=== PATIENT | female | born 1995 | race African-American/Black ===

== ENCOUNTER 2017-05-03 17:34 | Emergency (ER) | payer MEDICAID ==
[~2017-05-03] VITALS: Ht 165.1 cm; Wt 50.0 kg
[2017-05-03 17:36] VITALS: BP 123/85; PULSE 68; RESP 20; TEMP 98.6; O2SAT 99
[2017-05-03 19:40] VITALS: TEMP 98.4
--- NOTE | 2017-05-03 19:45 | PD ---
HPI Chief Complaint: Cold / Flu Symptoms Time Seen by Provider: 19:44 Travel History International Travel<30 days: No Contact w/Intl Traveler<30days: No Traveled to known affect area: No History of Present Illness HPI Patient comes in complaining of cold and flulike symptoms ongoing for 2 days. Patient reports cough that is occasionally productive, sinus congestion, body aches, and headaches. Patient took ibuprofen with minimal relief of her symptoms. Denies taking anything else for this. Denies anything making it worse. Denies any known sick contacts. Denies any nausea, vomiting, chest pain , shortness of breath, abdominal pain, loss or change in bowel or bladder, numbness or tingling anywhere, or . PFSH Past Medical History Medical History: Denies Significant Hx Diminished Hearing: No ?: Not LMP: 05/03/17 Past Surgical History Surgical History: No Previous Surgery Social History Alcohol Use: No Tobacco Use: No (never) Substance Use: No Allergies-Medications (Allergen,Severity, Reaction): Coded Allergies: No Known Allergies (Unverified , 05/03/17) Reported Meds & Prescriptions Reported Meds & Active Scripts Active No Active Prescriptions or Reported Medications Review of Systems Except as stated in HPI: all other systems reviewed are Neg Physical Exam Narrative GENERAL: Well-developed, well nourished, in no acute distress, and non-ill appearing. SKIN: Focused skin assessment warm and dry. HEAD: Atraumatic. Normocephalic. EYES: Pupils equal and round. EOMI. No scleral icterus. No injection or drainage. ENT: No nasal bleeding or discharge. Mucous membranes pink and moist. Tympanic membranes pearly hunt bilaterally. Posterior pharynx nonerythematous without exudate. Uvula is midline. Bogginess noted bilateral nares. No tenderness to facial sinuses to palpation. NECK: Trachea midline. No cervical lymphadenopathy. Supple. No nuclear rigidity. CARDIOVASCULAR: Regular rate and rhythm. No murmur appreciated. RESPIRATORY: No accessory muscle use. No respiratory distress. Clear to auscultation. Breath sounds equal bilaterally. No coughing on exam. GASTROINTESTINAL: Abdomen soft, non-tender, nondistended. Hepatic and splenic margins not palpable. Normal bowel sounds 4. No pulsatile mass. MUSCULOSKELETAL: No obvious deformities. No clubbing. No cyanosis. No edema. Full range of motion. NEUROLOGICAL: Awake and alert. No obvious cranial nerve deficits. Motor grossly within normal limits. Normal speech. PSYCHIATRIC: Appropriate mood and affect; insight and judgment normal. Data Data Last Documented VS Vital Signs Date Time Temp Pulse Resp B/P Pulse Ox O2 Delivery O2 Flow Rate FiO2 05/03/17 19:40 98.4 05/03/17 17:36 68 20 123/85 99 Room Air Orders Influenzae A/B Antigen (05/03/17 19:43) Group A Rapid Strep Screen (05/03/17 19:43) Chest, Single Ap (05/03/17 ) Strep Culture (Group A) (05/03/17 19:49) MDM Medical Decision Making Medical Screen Exam Complete: Yes Emergency Medical Condition: Yes Interpretation(s) Chest x-ray read by the radiologist shows: No acute cardiopulmonary disease. Differential Diagnosis Influenza, strep, pneumonia, URI, viral syndrome, other Narrative Course Patients symptom complex of cough and congestion is consistent with viral URI. The patient is non-ill appearing and is in no respiratory distress and comfortable. The patient moves air well and oxygen saturations are normal. There is no clinical evidence to suggest pneumonia at this time. Plan of care and management were discussed with the patient who agreed with plan. The patient was instructed to follow up with their physician and instructed to return if worsens, progressively worsening shortness of breath or difficulty breathing, persistent fever, chest pains or discomfort, inability to keep medication or fluids down with or without vomiting, or as needed. Patient in no obvious distress upon re-evaluation. All pertinent laboratory/ Radiology result(s) discussed with patient. Patient was asked if they wanted to speak to my attending, which the patient did not wish to do at this time. Any questions/concerns in reference to patient diagnosis/condition discussed and clarified prior to patient's discharge. Reinforced sheer importance of close follow up with patient's primary physician or primary care clinic. Instructed patient to return to ED immediately, if symptoms return/worsen. Pt showed understanding of above instructions. Further instructions and recommendations were detailed in discharge paperwork. Pt ambulated without difficulty out of ED at discharge. Diagnosis Primary Impression: Upper respiratory infection, viral Patient Instructions: General Instructions, Upper Respiratory Infection (ED) Additional Instructions: Follow-up with your primary care physician in 3-5 days for reevaluation. Use [id number] cold and flu medication for symptomatic relief. Follow instructions on the packaging. Drink plenty of non-caffeinated and nonalcoholic fluids. Return to the emergency department if symptoms get worse. Scripts No Active Prescriptions or Reported Meds Disposition: 01 DISCHARGE HOME Condition: Stable Waldo Kay May 03, 2017 19:45
--- NOTE | 2017-05-03 20:25 | RADRPT ---
EXAM DATE/TIME: 05/03/2017 19:56 [facility] COMPARISON: No previous studies available for comparison. INDICATIONS : Body pains and bloody mucus. MEDICAL HISTORY : None. SURGICAL HISTORY : None. ENCOUNTER: Initial ACUITY: 3 days PAIN SCORE: 4/10 LOCATION: Bilateral chest FINDINGS: The lungs are clear without infiltrate, nodule, or mass. There is no appreciable pleural effusion fo r technique. Heart and mediastinum are unremarkable. CONCLUSION: No acute cardiopulmonary disease. Shanel Yost MD on May 03, 2017 at 20:23 Board Certified Radiologist. This report was verified electronically.
== END 2017-05-03 21:01 | disposition home or self-care (01) ==
LOC: NEPD 17:34
DX: J06.9 Acute upper respiratory infection, unspecified (principal)
CPT/HCPCS: 71010; 87081; 87804; 87880; 99284

== ENCOUNTER 2017-07-12 18:35 | Emergency (ER) | payer MEDICAID ==
[~2017-07-12] VITALS: Ht 165.1 cm; Wt 50.0 kg
[2017-07-12 18:37] VITALS: BP 120/70; PULSE 70; RESP 20; TEMP 98.5; O2SAT 98
--- NOTE | 2017-07-12 19:56 | RADRPT ---
EXAM DATE/TIME: 07/12/2017 19:28 [facility] COMPARISON: No previous studies available for comparison. INDICATIONS : Constipation. MEDICAL HISTORY : None. SURGICAL HISTORY : None. ENCOUNTER: Initial ACUITY: 1 month PAIN SCORE: 0/10 LOCATION: Bilateral entire abdomen FINDINGS: Supine and upright views of the abdomen were performed. There is a moderate amount of stool in colon. No air fluid levels are seen. No abnormal masses, calcifications, or organomegaly is seen. The vis ualized lower lungs are clear. No evidence of free intraperitoneal gas. The osseous structures are unremarkable. CONCLUSION: Moderate amount of stool in the colon. Omid Astudillo MD on July 12, 2017 at 19:54 Board Certified Radiologist. This report was verified electronically.
[2017-07-12] MEDS ORDERED: MIRA3350 PO (20:33)
[2017-07-12] MEDS ORDERED: MILKSUS PO (20:33)
--- NOTE | 2017-07-12 20:42 | PD ---
HPI Chief Complaint: GI Complaint Time Seen by Provider: 19:07 Travel History International Travel<30 days: No Contact w/Intl Traveler<30days: No Traveled to known affect area: No History of Present Illness HPI 21-year-old female that presents to the ED for evaluation of constipation and abdominal cramping on occasion. Per patient she's had this for about 3 weeks. Per patient she does have a history of constipation but hasn't had any recently until this past 3 weeks. Per patient she has only had one really good bowel movement in the past 3 weeks. Per patient she feels like she is full. She states that she has a sensation that she has to go and she has abdominal cramping but nothing comes out. She is passing gas. She denies any urinary issues. She states that she does not believe that she is . She denies any vaginal discharge. No chest pain or shortness of breath. No nausea or vomiting. No allergies to medication. PFSH Past Medical History Medical History: Denies Significant Hx Diminished Hearing: No Tetanus Vaccination: < 5 Years Influenza Vaccination: Yes ?: Not LMP: 06/23/17 Past Surgical History Surgical History: No Previous Surgery Social History Alcohol Use: Yes Tobacco Use: No Substance Use: No Allergies-Medications (Allergen,Severity, Reaction): Coded Allergies: No Known Allergies (Unverified , 07/12/17) Reported Meds & Prescriptions Reported Meds & Active Scripts Active Milk of Magnesia Liq (Magnesium Hydroxide) 400 Mg/5 Ml Susp 15 Ml PO DAILY PRN Miralax Powder (Polyethylene Glycol 3350 Powder) 17 Gm Powd 17 Gm PO DAILY Mix and dissolve one measuring cap-ful (17 grams) in water or juice. Review of Systems Except as stated in HPI: all other systems reviewed are Neg Physical Exam Narrative GENERAL: SKIN: Warm and dry. HEAD: Atraumatic. Normocephalic. EYES: Pupils equal and round. No scleral icterus. No injection or drainage. ENT: No nasal bleeding or discharge. Mucous membranes pink and moist. Tongue is midline. No uvula deviation. NECK: Trachea midline. No JVD. CARDIOVASCULAR: Regular rate and rhythm. RESPIRATORY: No accessory muscle use. Clear to auscultation. Breath sounds equal bilaterally. GASTROINTESTINAL: Abdomen soft, non-tender, nondistended. Hepatic and splenic margins not palpable. MUSCULOSKELETAL: Extremities without clubbing, cyanosis, or edema. No obvious deformities. Full range of motion of the upper and lower extremities bilaterally. 2+ pulses bilaterally. NEUROLOGICAL: Awake and alert. No obvious cranial nerve deficits. Motor grossly within normal limits. Five out of 5 muscle strength in the arms and legs. Normal speech. PSYCHIATRIC: Appropriate mood and affect; insight and judgment normal. Data Data Last Documented VS Vital Signs Date Time Temp Pulse Resp B/P (MAP) Pulse Ox O2 Delivery O2 Flow Rate FiO2 07/12/17 18:37 98.5 70 20 120/70 (87) 98 Room Air Orders Orders Abdomen, Flat & Upright (07/12/17 19:26) Urinalysis - C+S If Indicated (07/12/17 19:26) Ed Urine Pregnancytest Poc (07/12/17 19:26) [facility] Medical Decision Making Medical Screen Exam Complete: Yes Emergency Medical Condition: Yes Medical Record Reviewed: Yes Interpretation(s) Last Impressions Abdomen X-Ray 07/12/171925 Signed Impressions: Service Date/Time: Wednesday, July 12, 2017 19:28 - CONCLUSION: Moderate amount of stool in the colon. Omid Astudillo MD Differential Diagnosis Constipation versus UTI versus acute on chronic constipation Narrative Course 21-year-old female that presents to the ED for evaluation of possible constipation. Patient was properly examined and was found to have signs and symptoms consistent constipation. Chest x-ray was done and did not show obstruction but did show moderate amount of stool on the bowels. Patient has only had 1 bowel movement the past 3 weeks. At this time I recommend trial of outpatient treatment. Patient has not taken anything for this. She will be given a prescription for MiraLAX and milk of magnesia. She was told that if this does not help her and she really feels that she needs to have a bowel movement she continues an enema [id number]. Close follow with PCP. See ED for worsening symptoms. Drink plenty of fluids. Plenty of exercise. Diagnosis Primary Impression: Constipation Qualified Codes: K59.00 - Constipation, unspecified Patient Instructions: General Instructions Additional Instructions: Take medications as prescribed. If worse comes to worse you really have to have a bowel movement you can use an enema [id number]. Ask the pharmacist about this and they will show you hold to use it. You can take the MiraLAX and bilateral [id number] as well every day to prevent constipation and to help you have regular frequent bowel movements. Drink plenty of fluids. See ED worsening symptoms. Follow with PCP. Med/Other Pt SpecificInfo: Prescription(s) given Scripts Magnesium Hydroxide Liq (Milk of Magnesia Liq) 400 Mg/5 Ml Susp 15 ML PO DAILY Y for CONSTIPATION, #1 BOTTLE 0 Refills Prov: Keysha Kenyon MD 07/12/17 Polyethylene Glycol 3350 Powder (Miralax Powder) 17 Gm Powd 17 GM PO DAILY for Constipation, #1 CAN 0 Refills Mix and dissolve one measuring cap-ful (17 grams) in water or juice. Prov: Keysha Kenyon MD 07/12/17 Disposition: 01 DISCHARGE HOME Condition: Stable Oliverio Foley Jul 12, 2017 20:42
== END 2017-07-12 22:00 | disposition home or self-care (01) ==
LOC: NEPE 18:35
DX: K59.00 Constipation, unspecified (principal)
CPT/HCPCS: 74020; 99284

== ENCOUNTER 2017-10-26 15:11 | Emergency (ER) | payer MEDICAID ==
[~2017-10-26 15:11] MED LIST: MILKSUS PO; MIRA3350 PO
[2017-10-26 15:13] VITALS: BP 125/75; PULSE 91; RESP 12; TEMP 100.2; O2SAT 98
[2017-10-27] MEDS ORDERED: OSEL75 PO (09:31)
== END 2017-10-26 17:09 | disposition left against medical advice (07) ==
LOC: NED 15:11
DX: J11.1 Influenza due to unidentified influenza virus with other respiratory manifestations (principal); Z53.21 Procedure and treatment not carried out due to patient leaving prior to being seen by health care provider
CPT/HCPCS: 99281

== ENCOUNTER 2017-10-27 08:15 | Emergency (ER) | payer MEDICAID ==
[~2017-10-27] VITALS: Ht 165.1 cm; Wt 49.0 kg
[2017-10-27 08:16] VITALS: BP 114/69; PULSE 102; RESP 14; TEMP 98.2; O2SAT 99
--- NOTE | 2017-10-27 09:12 | PD ---
HPI Chief Complaint: Cold / Flu Symptoms Time Seen by Provider: 08:26 Travel History International Travel<30 days: No Contact w/Intl Traveler<30days: No Traveled to known affect area: No History of Present Illness HPI 22 year old female presents to the emergency department for evaluation of nonproductive cough, body aches, nausea, runny nose, fever, chills and malaise x 2 days. Patient denies any sore throat. Patient has tried using OTC remedies, NyQuil and Ibuprofen but they have not provided relief. Patient has no major medical history and does not take any routine daily medication. Patient denies any chest pain, shortness of breath, vomiting, diarrhea. PFSH Past Medical History Diminished Hearing: No ?: Not LMP: 10/19/17 Social History Alcohol Use: Yes (occ) Tobacco Use: No Substance Use: No Allergies-Medications (Allergen,Severity, Reaction): Coded Allergies: No Known Allergies (Unverified Adverse Reaction, Unknown, 10/27/17) Reported Meds & Prescriptions Reported Meds & Active Scripts Active Milk of Magnesia Liq (Magnesium Hydroxide) 400 Mg/5 Ml Susp 15 Ml PO DAILY PRN Miralax Powder (Polyethylene Glycol 3350 Powder) 17 Gm Powd 17 Gm PO DAILY Mix and dissolve one measuring cap-ful (17 grams) in water or juice. Review of Systems Except as stated in HPI: all other systems reviewed are Neg General / Constitutional: Positive: Fever, Chills Physical Exam Narrative GENERAL: Well-nourished, well-developed 22 year old black female patient in no acute distress resting in the stretcher. SKIN: Focused skin assessment warm/dry. HEAD: Normocephalic. Atraumatic. EYES: No scleral icterus. No injection or drainage. NECK: Supple, trachea midline. No JVD or lymphadenopathy. CARDIOVASCULAR: Regular rate and rhythm without murmurs, gallops, or rubs. RESPIRATORY: Breath sounds equal bilaterally. No accessory muscle use. GASTROINTESTINAL: Abdomen soft, non-tender, nondistended. MUSCULOSKELETAL: No cyanosis, or edema. BACK: Nontender without obvious deformity. No CVA tenderness. Data Data Last Documented VS Vital Signs Date Time Temp Pulse Resp B/P (MAP) Pulse Ox O2 Delivery O2 Flow Rate FiO2 10/27/17 08:46 18 Room Air 1/9/18 08:16 98.2 102 114/69 (84) 99 Orders Orders Influenzae A/B Antigen (10/27/17 08:31) Chest, Single Ap (10/27/17 08:37) MDM Medical Decision Making Medical Screen Exam Complete: Yes Emergency Medical Condition: Yes Differential Diagnosis Differential diagnosis include but not limited to influenza, viral syndrome, bronchitis, pneumonia, URI Narrative Course Patient's symptoms and physical exam was consistent with influenza. Influenza ordered and pending. Influenza positive for flu a antigen. Chest x-ray ordered and pending. Chest x-ray shows no acute cardiac pulmonary disease. There is no evidence of pneumonia. Patient will be given Tamiflu, given instructions on supportive care and to return to the emergency Department with any worsening condition but otherwise follow up with primary care. Diagnosis Primary Impression: Influenza Referrals: Primary Care Physician Patient Instructions: General Instructions, Influenza (DC) Departure Forms: Tests/Procedures, Work Release Special Instructions: Free fever x 24 hours Additional Instructions: Please return to emergency department if your symptoms return or worsen. Follow up with your primary care provider. Take medications as prescribed. Alternate ibuprofen and Tylenol as needed for pain or fevers. Supportive care, stay hydrated, get enough rest, diet as tolerated. Med/Other Pt SpecificInfo: Prescription(s) given Scripts Oseltamivir (Tamiflu) 75 Mg Cap 75 MG PO BID for Mgmt Viral Infection for 5 Days, #10 CAP 0 Refills Prov: Rabia Mancuso 10/27/17 Disposition: 01 DISCHARGE HOME Condition: Stable Rabia Mancuso Oct 27, 2017 09:12
--- NOTE | 2017-10-27 09:22 | RADRPT ---
EXAM DATE/TIME: 10/27/2017 08:53 [facility] COMPARISON: CHEST SINGLE AP, May 03, 2017, 19:56. INDICATIONS : Fever, nausea, vomiting, cough. MEDICAL HISTORY : None. SURGICAL HISTORY : None. ENCOUNTER: Initial ACUITY: 1 week PAIN SCORE: 3/10 LOCATION: Bilateral chest FINDINGS: A single view of the chest demonstrates the lungs to be symmetrically aerated without evidence of mas s, infiltrate or effusion. The cardiomediastinal contours are unremarkable. Osseous structures are intact. CONCLUSION: No acute cardiac pulmonary disease. There is no evidence of pneumonia. Omid Astudillo MD on October 27, 2017 at 9:18 Board Certified Radiologist. This report was verified electronically.
[2017-10-27] MEDS ORDERED: OSEL75 PO (09:31)
== END 2017-10-27 09:45 | disposition home or self-care (01) ==
LOC: NEPD 08:15
DX: J11.1 Influenza due to unidentified influenza virus with other respiratory manifestations (principal)
CPT/HCPCS: 71045; 87804; 99283